=== PATIENT | female | born 1985 | race Caucasian/White ===

== ENCOUNTER 2017-04-22 12:03 | Emergency (ER) | payer MEDICAID, OTHER ==
[2017-04-22 12:18] VITALS: BP 149/91; PULSE 70; RESP 20; TEMP 98.7; O2SAT 100
--- NOTE | 2017-04-22 12:28 | ED PDOC ---
Arrival/HPI - General Chief Complaint: ENT Problem Historian: Patient - History of Present Illness Narrative History of Present Illness (Text): 04/22/17 12:27 Kenia Chance is a 32 year old female, whose past medical history includes auditory canal cysts, who presents to the emergency department complaining of pain around the pre-auricular area for a couple of days. Patient notes the pain feels like a pressure that she has experienced before. Patient has had multiple surgeries on this ear because of cysts (last one 3 years ago). Patient denies any fever, vomiting, diarrhea, coughing, chest pain, back pain, ear pain, or any other complaints. Time/Duration: < week (couple days) Symptom Onset: Gradual Symptom Course: Unchanged Activities at Onset: Light Context: Home Past Medical History - Provider Review Nursing Documentation Reviewed: Yes Family/Social History - Physician Review Nursing Documentation Reviewed: Yes Family/Social History: Unknown Family HX Allergies/Home Meds Allergies/Adverse Reactions: Allergies shellfish derived Allergy (Verified 04/22/17 12:15) ITCHING Review of Systems - Physician Review All systems were reviewed & negative as marked: Yes - Review of Systems Constitutional: Normal. absent: Fevers Eyes: Normal ENT: Tinnitus Respiratory: Normal. absent: SOB, Cough Cardiovascular: Normal. absent: Chest Pain Gastrointestinal: Normal. absent: Abdominal Pain, Diarrhea, Nausea, Vomiting Genitourinary Female: Normal. absent: Dysuria, Frequency Musculoskeletal: Normal. absent: Back Pain, Neck Pain Skin: Normal. absent: Rash Neurological: Normal. absent: Headache, Dizziness Endocrine: Normal Hemo/Lymphatic: Normal Psychiatric: Normal Physical Exam Vital Signs Reviewed: Yes Vital Signs Temp Pulse Resp BP Pulse Ox 04/22/17 12:15 98.7 F 70 20 149/91 H 100 Temperature: Afebrile Blood Pressure: Normal Pulse: Regular Respiratory Rate: Normal Appearance: Positive for: Well-Appearing, Non-Toxic, Comfortable Pain Distress: None Mental Status: Positive for: Alert and Oriented X 3 - Systems Exam Head: Present: Atraumatic, Normocephalic Pupils: Present: PERRL Extroacular Muscles: Present: EOMI Conjunctiva: Present: Normal Ears: Present: Other (Pre-auricular tenderness). No: Erythema, Normal Canal Mouth: Present: Moist Mucous Membranes Neck: Present: Normal Range of Motion Respiratory/Chest: Present: Clear to Auscultation, Good Air Exchange. No: Respiratory Distress, Accessory Muscle Use Cardiovascular: Present: Regular Rate and Rhythm, Normal S1, S2. No: Murmurs Abdomen: Present: Normal Bowel Sounds. No: Tenderness, Distention, Peritoneal Signs Back: Present: Normal Inspection Upper Extremity: Present: Normal Inspection. No: Cyanosis, Edema Lower Extremity: Present: Normal Inspection. No: Edema Neurological: Present: GCS=15, CN II-XII Intact, Speech Normal Skin: Present: Warm, Dry, Normal Color. No: Rashes Psychiatric: Present: Alert, Oriented x 3, Normal Insight, Normal Concentration Medical Decision Making ED Course and Treatment: 04/22/17 12:27 Impression: 32 year old female presents to the ED complaining of pre-auricular pain for a couple days. Differential Diagnosis: Plan: possible CT evaluation of complaint -- CBC -- Reasses and Disposition Progress Notes: 04/22/2017 12:41 Case discussed with radiology Dr. Ortez who recommends MR outpatient for evaluation of complaint as best study. Feels CT unnecessary radiation at this time. 04/22/17 13:[address] Baumann. Recommends augmentin rx and follow up with ENT that performed latest sx. If unable, advised to f/u with him. Patient seen and examined by Dr. Espinal in ED as well. He is in agreement with plan. Documented by Reina Cordova acting as a scribe for Brie Coles MD. 04/22/17 19:22 - Lab Interpretations Lab Results: 04/22/17 12:40 04/22/17 12:40 Lab Results 04/22/17 12:40: Sodium 141, Potassium 4.8, Chloride 102, Carbon Dioxide 26, Anion Gap 18, BUN 11, Creatinine 0.6 L, Est GFR ( Amer) > 60, Est GFR ( Non-Af Amer) > 60, Random Glucose 89, Calcium 9.2, Total Bilirubin 1.1, AST 30, ALT 38, Alkaline Phosphatase 40, Total Protein 7.7, Albumin 4.2, Globulin 3.5, Albumin/Globulin Ratio 1.2 04/22/17 12:40: WBC 6.1, RBC 4.56, Hgb 14.0, Hct 40.4, MCV 88.7, MCH 30.7, MCHC 34.6, RDW 13.9, Plt Count 249, MPV 8.8, Neut % (Auto) 64.2, Lymph % (Auto) 26.6 , [place] % (Auto) 7.0, Eos % (Auto) 1.6, Baso % (Auto) 0.6, Neut # (Auto) 3.9, Lymph # (Auto) 1.6, [place] # (Auto) 0.4, Eos # (Auto) 0.1, Baso # (Auto) 0.0 - Medication Orders Current Medication Orders: Discontinued Medications Amoxicillin/Clavulanate Potassium (Augmentin 875 Mg-125 Mg Tab) 1 tab PO STAT STA PRN Reason: Protocol Stop: 04/22/17 13:27 Last Admin: 04/22/17 13:31 Dose: 1 tab Disposition/Present on Arrival - Present on Arrival Any Indicators Present on Arrival: No - Disposition Have Diagnosis and Disposition been Completed?: Yes Diagnosis: Right ear pain, Preauricular cyst Disposition: HOME/ ROUTINE Disposition Time: 19:25 Condition: FAIR Discharge Instructions (ExitCare): Outer Ear Infection Prescriptions: Amoxicillin/Clavulanate [Augmentin 875 MG-125 MG] 1 tab PO BID #20 tab Referrals: Oz Plascencia MD [Staff Provider] - Forms: [employer] ([place]ong[place]ian), [facility] ED School/Work Excuse
[2017-04-22 13:03] LABS: BASO % 0.6 % (0.0-2.0); EOS # 0.1 K/uL (0.0-0.7); EOS % 1.6 % (0.0-4.0); LYMPH # 1.6 K/uL (1.0-4.3); LYMPH % 26.6 % (20.0-40.0); MEAN CELL VOLUME 88.7 fl (81.0-99.0); MEAN CORPUSCULAR HEMOGLOBIN 30.7 pg (27.0-31.0); MEAN CORPUSCULAR HGB CONC 34.6 g/dL (33.0-37.0); MEAN PLATELET VOLUME 8.8 fl (7.2-11.7); MONO # 0.4 K/uL (0.0-0.8); NEUT # 3.9 K/uL (1.8-7.0); NEUT % 64.2 % (50.0-75.0); NRBC % 0.2 % (0.0-0.0); RBC 4.56 Mil/uL (3.80-5.20); RED CELL DISTRIBUTION WIDTH 13.9 % (11.5-14.5); WHITE BLOOD COUNT 6.1 K/uL (4.8-10.8)
[2017-04-22 13:06] LABS: CALCIUM 9.2 mg/dL (8.4-10.2); GFR AFRICAN-AMERICAN > 60; GFR NON-AFRICAN AMERICAN > 60
[2017-04-22 13:13] LABS: ALB/GLOB RATIO 1.2 (1.0-2.1); ALBUMIN 4.2 g/dL (3.5-5.0); ALT/SGPT 38 U/L (9-52); AST/SGOT 30 U/L (14-36); BLOOD UREA NITROGEN 11 mg/dl (7-17)
[2017-04-22] MEDS ORDERED: Amoxicillin-Clav 875-125 mg Tab PO STA (13:26)
== END 2017-04-22 13:44 | disposition home or self-care (01) ==
LOC: H.ER 12:03
DX: Q18.1 Preauricular sinus and cyst (principal); H92.01 Otalgia, right ear

== ENCOUNTER 2018-06-09 12:27 | Emergency (ER) | payer MEDICAID, OTHER ==
[2018-06-09 12:30] VITALS: O2SAT 99; BMI 31.1
[2018-06-09 14:55] LABS: SQUAMOUS EPITHIAL < 1 /hpf (0-5); URINE BILIRUBIN NEGATIVE (NEGATIVE); URINE BLOOD NEGATIVE (NEGATIVE); URINE CLARITY CLEAR (Clear); URINE COLOR YELLOW (YELLOW); URINE GLUCOSE (UA) NEG (NEGATIVE); URINE LEUKOCYTE ESTERASE NEG Leu/uL (Negative); URINE PROTEIN NEGATIVE (NEGATIVE); URINE UROBILINOGEN 0.2-1.0 mg/dL (0.2-1.0)
--- NOTE | 2018-06-09 17:39 | ED PDOC ---
HPI: Female Pain Time Seen by Provider: 06/09/18 12:35 Chief Complaint (Nursing): Female Genitourinary Chief Complaint (Provider): Genital pain, History Per: Patient History/Exam Limitations: no limitations Onset/Duration Of Symptoms: Days Additional Complaint(s): 33 yo female presents for evaluation of and pain of her genitals. Pt states that he found out she was 2 days ago and last menses was in April but does not remember when. PT denies vaginal bleeding. PT states she is having pain in the anterior genital region. No lesions. Past Medical History Reviewed: Historical Data, Nursing Documentation, Vital Signs Vital Signs: Last Vital Signs Temp 97.9 F 06/09/18 12:30 Pulse 80 06/09/18 12:30 Resp 14 06/09/18 12:30 BP 130/82 06/09/18 12:30 Pulse Ox 99 06/09/18 12:30 Primary Care Provider: FAMILY PROVIDER,NO - Medical History PMH: No Chronic Diseases - Surgical History Surgical History: No Surg Hx - Family History Family History: States: No Known Family Hx - Immunization History Hx Tetanus Toxoid Vaccination: No Hx Influenza Vaccination: No Hx Pneumococcal Vaccination: No - Home Medications Home Medications: Ambulatory Orders Medication Instructions Recorded Ibuprofen [Motrin] 1 tab PO TID PRN #30 tab 12/16/17 - Allergies Allergies/Adverse Reactions: Allergies Allergy/AdvReac Type Severity Reaction Status Date / Time shellfish derived Allergy ITCHING Verified 06/09/18 12:31 Review of Systems ROS Statement: Except As Marked, All Systems Reviewed And Found Negative Constitutional: Negative for: Fever, Chills Gastrointestinal: Negative for: Nausea, Vomiting, Abdominal Pain, Diarrhea Genitourinary Female: Positive for: Pelvic Pain. Negative for: Dysuria, Frequency, Vaginal Discharge, Vaginal Bleeding Physical Exam - Reviewed Nursing Documentation Reviewed: Yes Vital Signs Reviewed: Yes - Physical Exam Appears: Positive for: Well, Non-toxic, No Acute Distress Head Exam: Positive for: ATRAUMATIC, NORMAL INSPECTION, NORMOCEPHALIC Skin: Positive for: Normal Color, Warm, DRY Eye Exam: Positive for: Normal appearance ENT: Positive for: Normal ENT Inspection Neck: Positive for: Normal, Painless ROM Cardiovascular/Chest: Positive for: Regular Rate, Rhythm Respiratory: Positive for: CNT, Normal Breath Sounds Gastrointestinal/Abdominal: Positive for: Normal Exam, Soft. Negative for: Tenderness Pelvic Exam: Positive for: External Exam Normal. Negative for: Discharge, Lesions Back: Positive for: Normal Inspection Extremity: Positive for: Normal ROM Neurological/Psych: Positive for: Awake, Alert, Normal Tone - Laboratory Results Lab Results: Urine Color Yellow (YELLOW) 06/09/18 14:20 Urine Clarity Clear (Clear) 06/09/18 14:20 Urine pH 7.0 (5.0-8.0) 06/09/18 14:20 Ur Specific [place] 1.017 (1.003-1.030) 06/09/18 14:20 Urine Protein Negative mg/dL (NEGATIVE) 06/09/18 14:20 Urine Glucose (UA) Neg mg/dL (NEGATIVE) 06/09/18 14:20 Urine Ketones Negative mg/dL (NEGATIVE) 06/09/18 14:20 Urine Blood Negative (NEGATIVE) 06/09/18 14:20 Urine Nitrate Negative (NEGATIVE) 06/09/18 14:20 Urine Bilirubin Negative (NEGATIVE) 06/09/18 14:20 Urine Urobilinogen 0.2-1.0 mg/dL (0.2-1.0) 06/09/18 14:20 Ur Leukocyte Esterase Neg [place]/uL (Negative) 06/09/18 14:20 Urine RBC (Auto) 3 /hpf (0-3) 06/09/18 14:20 Urine Microscopic WBC < 1 /hpf (0-5) 06/09/18 14:20 Ur Squamous Epith Cells < 1 /hpf (0-5) 06/09/18 14:20 Beta HCG, Quant 59571.00 mIU/mL 06/09/18 13:19 - ECG O2 Sat by Pulse Oximetry: 99 Pulse Ox Interpretation: Normal Medical Decision Making Medical Decision Making: (+) IUP with FHT Urine normal. Disposition - Clinical Impression Clinical Impression: Pelvic pain affecting - Patient ED Disposition Is Patient to be Admitted: No - Disposition Disposition: Routine/Home Disposition Time: 17:38 Condition: STABLE Additional Instructions: Please begin vitamins. Instructions: Screenings
--- NOTE | 2018-06-09 17:44 | US ---
Date of service: 06/09/2018 HISTORY: Pelvic pain in COMPARISON: None available. TECHNIQUE: Transvaginal sonographic evaluation FINDINGS: UTERUS: Uterus measures approximately 10.3 x 7.7 x 8.0 cm. There is a single living intrauterine gestation. Gestational sac: MSD 1.71 cm = 6 weeks 0 days Yolk sac: 0.23 cm pole: 0.39 cm = 6 weeks 1 day Heart motion detected; heart rate = 132 BPM Average ultrasound age: 6 weeks 1 day +/-0 weeks 3 days CYN based on average ultrasound age: 1202/01/2019 ENDOMETRIUM: Measures 2.8 x 1.4 x 2.5 mm in diameter. Unremarkable. CERVIX: Cervix closed. Small nabothian cyst RIGHT OVARY: Measures 2.8 x 1.4 x 2.5 cm. No solid mass. Normal flow. The adnexal cystic structure measuring 1.7 x 0.8 x 1.7 LEFT OVARY: Measures 4.8 x 2.5 x 2.7 with left adnexal cyst measuring 2.0 x 1.3 x 2.0 cm.. No solid mass. Normal flow. FREE FLUID: No significant free fluid noted. OTHER FINDINGS: None. IMPRESSION: Single living intrauterine gestation estimated approximately 6 weeks 1 day +/-0 weeks 3 days. Heart rate detected at 132 BPM Bilateral adnexal cysts. Small cervical nabothian cyst
[2018-06-09 18:49] VITALS: BP 120/70; PULSE 76; RESP 15; TEMP 97.6
== END 2018-06-09 17:45 | disposition home or self-care (01) ==
LOC: H.ER 12:27
DX: O26.891 Other specified pregnancy related conditions, first trimester (principal); Z3A.01 Less than 8 weeks gestation of pregnancy; O34.41 Maternal care for other abnormalities of cervix, first trimester